=== PATIENT | female | born 1960 | race Caucasian/White ===

== ENCOUNTER → 2020-07-24 | Outpatient (CLI) | payer OTHER ==
[~2020-07-24] MED LIST: AMLODIPINE BESYL5 MG PO; BENTYL 20MG TAB20 MG PO; CIPRO500 MG PO; FLAGYL500 MG PO; GLIPIZIDE5 MG PO; HYDROCHLOROTH12.5 MG PO; LIPITOR10 MG PO; METFORMIN HCL1000 M1 PO; PRINIVIL20 MG PO; ST. JOSEPH ASPI81 M1 PO; VITAMIN D31250 MCG PO; ZOFRAN4 MG PO
== END ==
LOC: MAMO 14:00
DX: Z12.31 Encounter for screening mammogram for malignant neoplasm of breast (principal); Z20.822 Contact with and (suspected) exposure to COVID-19
CPT/HCPCS: 77063; 77067; U0003

== ENCOUNTER → 2020-07-26 | Day surgery (SDC) | payer OTHER | END | disposition home or self-care (01) | LOC: OR 06:46 | DX: Z12.11 Encounter for screening for malignant neoplasm of colon (principal); D12.4 Benign neoplasm of descending colon; K57.30 Diverticulosis of large intestine without perforation or abscess without bleeding; I10 Essential (primary) hypertension; E78.00 Pure hypercholesterolemia, unspecified; E11.9 Type 2 diabetes mellitus without complications; J44.9 Chronic obstructive pulmonary disease, unspecified; F17.210 Nicotine dependence, cigarettes, uncomplicated; Z86.010 Personal history of colon polyps; Z88.0 Allergy status to penicillin; Z79.84 Long term (current) use of oral hypoglycemic drugs; Z79.82 Long term (current) use of aspirin; Z79.899 Other long term (current) drug therapy | CPT/HCPCS: 82962; J2704; J7120 ==